=== PATIENT | female | born 1965 | race Two or more races ===

== ENCOUNTER 2022-03-16 08:06 | Outpatient (CLI) | payer OTHER, SELFPAY ==
--- NOTE | 2022-03-16 08:15 | CRLHL7_ITS ---
For Patients: As a result of the Century Cures Act, medical imaging exams and procedure reports are released immediately into your electronic medical record. You may view this report before your referring provider. If you have questions, please contact your health care provider. BILATERAL SCREENING MAMMOGRAM WITH COMPUTER-AIDED DETECTION AND TOMOSYNTHESIS TECHNIQUE: CC and MLO views were obtained. These mammographic images have been obtained using full-field digital technique. These mammographic images were interpreted with the benefit of computer-aided detection. Breast Tomosynthesis was used in this interpretation. COMPARISON FILM: 12/01/20, 06/30/20, 04/01/19. FINDINGS: There are scattered areas of fibroglandular density IMPRESSION: There is no radiographic evidence for malignancy. ASSESSMENT: BI-RADS Category 1: Negative RECOMMENDATION: Routine screening mammogram in 1 year. A lay language report of this examination will be provided to the patient. Roney Villatoro M.D. Diagnostic/Musculoskeletal Radiologist [email or web address] KEKE/Dictated by: Roney Villatoro MD @ 03/16/2022 8:57:00 AM (Electronically Signed)
== END 2022-03-16 08:07 | disposition home or self-care (01) ==
LOC: MAMMO 08:07
PROVIDERS: PCP Family Medicine; Visit Provider Family Medicine
DX: Z12.31 Encounter for screening mammogram for malignant neoplasm of breast (principal)
CPT/HCPCS: 77063; 77067

== ENCOUNTER 2023-03-05 09:55 | Outpatient (CLI) | payer OTHER, SELFPAY ==
--- NOTE | 2023-03-05 10:15 | CRLHL7_ITS ---
For Patients: As a result of the Cures Act, medical imaging exams and procedure reports are released immediately into your electronic medical record. You may view this report before your referring provider. If you have questions, please contact your health care provider. BILATERAL SCREENING MAMMOGRAM WITH COMPUTER-AIDED DETECTION AND TOMOSYNTHESIS TECHNIQUE: CC and MLO views were obtained. These mammographic images have been obtained using full-field digital technique. These mammographic images were interpreted with the benefit of computer-aided detection. Breast Tomosynthesis was used in this interpretation. COMPARISON FILM: 03/16/22, 12/01/20, 06/30/20. FINDINGS: There are scattered areas of fibroglandular density IMPRESSION: There is no radiographic evidence for malignancy. ASSESSMENT: BI-RADS Category 1: Negative RECOMMENDATION: Routine screening mammogram in 1 year. A lay language report of this examination will be provided to the patient. Dipesh Mora M.D. Diagnostic/Nuclear Medicine Radiologist [email or web address] KEKE/Dictated by: Dipesh Mora MD @ 03/06/2023 10:28:00 AM (Electronically Signed)
== END 2023-03-05 09:56 | disposition home or self-care (01) ==
PROVIDERS: PCP Family Medicine; Visit Provider Family Medicine
DX: Z12.31 Encounter for screening mammogram for malignant neoplasm of breast (principal)
CPT/HCPCS: 77063; 77067

== ENCOUNTER 2023-05-01 09:25 | Outpatient (CLI) | payer OTHER, SELFPAY | END 2023-05-01 09:26 | disposition home or self-care (01) | LOC: NFLDREF 05-04 17:48 | PROVIDERS: PCP Family Medicine; Referring Provider Family Medicine; Visit Provider Family Medicine | DX: Z00.00 Encounter for general adult medical examination without abnormal findings (principal); M85.80 Other specified disorders of bone density and structure, unspecified site; E78.5 Hyperlipidemia, unspecified; E66.9 Obesity, unspecified; R73.03 Prediabetes | CPT/HCPCS: 80053; 80061; 82306 ==

== ENCOUNTER 2024-03-05 07:40 | Outpatient (CLI) | payer OTHER, SELFPAY | END 2024-03-05 07:41 | disposition home or self-care (01) | LOC: NFLDREF 03-07 17:39 | PROVIDERS: PCP Family Medicine; Referring Provider Family Medicine; Visit Provider Family Medicine | DX: E78.5 Hyperlipidemia, unspecified (principal); R73.03 Prediabetes | CPT/HCPCS: 80053; 80061 ==

== ENCOUNTER 2024-05-07 06:21 | Outpatient (CLI) | payer OTHER, SELFPAY ==
--- OUTSIDE RECORDS SUMMARY | 2024-05-07 06:24 | XMS_ITS | Clinical Summary ---
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 12/03/2016 Family History Medical History Relation Name Comments Other Father glaucoma Genetic Other Arthritis Fathe r~Grandparents-glaucoma~Mom-high blood pressure Relation Name Status Comments Father Other Social History Tobacco Use Types Packs/Day Years Used Date Smoking Tobacco: Never Smokeless Tobacco: Never Alcohol Use Standard Drinks/Week Comments Not Asked 0 (1 standard drink = 0.6 oz pur e alcohol) Sex and Gender Information Value Date Recorded Sex Assigned at Not on file Gender Identity Not on file Sexual Orientation Not on file Obstetrics History Last Filed Vital Signs Vital Sign Reading Time Taken Comments Blood Pressure 99/67 12/05/2017 6:17 PM CDT Pulse 77 12/05/2017 6:17 PM CDT Temperature - - Respiratory Rate - - Oxygen Saturation - - Inhaled Oxygen Concentration - - Weight - - Height - - Body Mass Index - - Plan of Treatment Health Maintenance Due Date Last Done Comments Tdap 1974 Depression screening for age 12+ 1975 HIV for age 15-65 1978 BMI (ht and wt on same day) for age 18+ 1981 Hepatitis C screening for age 18-79 1981 Tetanus booster 1983 Colonoscopy through age 75 2008 Lipids for age 45-75 2008 Mammogram for age 45-75 2008 Zoster (shingles) series for age 50+ (1 of 2) 2013 COVID-19 vaccine series (2023- season) 2024 Influenza for age 50-64 03/15/2024 Pap test for age 21-65 05/03/2026 , 05/03/2023, 01/04/2017, Additional history exists Pneumococcal series for age 6-64 Aged Out No longer eligible based on patient's age to complete this topic Procedures Procedure Name Priority Date/Time Associated Diagnosis Comments HPV HIGH RISK Routine 05/03/2023 7:59 AM CDT from Last 3 Months or Most Recently Relevant to Health Maintenance Results * HPV HIGH RISK (05/03/2023 7:59 AM CDT) TYPE 16 Negative Negative 05/07/2023 4:13 PM CDT [facility] TYPE 18 Negative Negative 05/07/2023 4:13 PM CDT [facility] OTHER HIGH RISK TYPES Negative Negative 05/07/2023 4:13 PM CDT [facility] Other (Cervical/Vagina l) 05/03/2023 7:59 AM CDT 05/03/2023 4:38 PM CDT Narrative [facility] - 05/07/2023 4:13 PM CDT HPV types 16, 18, 31, 33, 35, 39, 45, 51, 52, 56, 58, 59, 66 and 68 DNA were undetectable or below the pre-set threshold. Methodology: Nik Alonzo 4800 HPV Test Vanna Ramey MD [facility]OLOG[facility] [address] [place] [address], from Last 3 Months or Most Recently Relevant to Health Maintenance Care Teams Eye Glass Frame Polisher Relationship Specialty Start Date End Date Anita Tinsley MD PCP - General Family Practice 08/17/11
--- NOTE | 2024-05-07 07:42 | W.ANESCHARGE ---
Anesthesia Charges Start Date/Time Anesthesia Start Date: 05/07/24 Anesthesia Start Time: 07:15 Stop Date/Time Anesthesia Stop Date: 05/07/24 Anesthesia Stop Time: 07:39
--- NOTE | 2024-05-07 08:52 | W.ANESCHARGE ---
Anesthesia Charges Start Date/Time Anesthesia Start Date: 05/07/24 Anesthesia Start Time: 07:15 Stop Date/Time Anesthesia Stop Date: 05/07/24 Anesthesia Stop Time: 07:39
--- NOTE | 2024-05-07 08:54 | W.ANESCHARGE ---
Anesthesia Charges Start Date/Time Anesthesia Start Date: 05/07/24 Anesthesia Start Time: 07:15 Stop Date/Time Anesthesia Stop Date: 05/07/24 Anesthesia Stop Time: 07:39
== END 2024-05-07 06:22 | disposition home or self-care (01) ==
LOC: OP CLINIC 06:22
PROVIDERS: PCP Family Medicine; Visit Provider Surgery
DX: Z12.11 Encounter for screening for malignant neoplasm of colon (principal); D12.2 Benign neoplasm of ascending colon; K64.9 Unspecified hemorrhoids
CPT/HCPCS: 00811; 00812; 45385; 88305; J2704

== ENCOUNTER 2024-05-12 17:04 | Outpatient (CLI) | payer OTHER, SELFPAY ==
--- OUTSIDE RECORDS SUMMARY | 2024-05-12 17:06 | XMS_ITS | Clinical Summary ---
Author Organization [facility] Address [place], [place] [address] Care Team Providers Care Hunter Name Role Phone Anita Tinsley MD Primary [...] 16 Negative Negative 05/07/2023 4:13 PM CDT [facility] TYPE 18 Negative Negative 05/07/2023 4:13 PM CDT [facility] OTHER HIGH RISK TYPES Negative Negative 05/07/2023 4:13 PM CDT [facility] Other (Cervical/Vagina l) 05/03/2023 7:59 AM CDT 05/03/2023 4:38 PM CDT Narrative [facility] - 05/07/2023 4:13 PM CDT HPV types 16, 18, 31, 33, 35, 39, 45, 51, 52, 56, 58, 59, 66 and 68 DNA were undetectable or below the pre-set threshold. Methodology: Nik Alonzo 4800 HPV Test Vanna Ramey MD MI[facility]BIOLOGY [facility] [address] [place] [address], from Last 3 Months or Most Recently Relevant to Health Maintenance Care Teams Hunter Relationship Specialty Start Date End Date Anita Tinsley MD PCP - General Family Practice 08/17/11
--- NOTE | 2024-05-12 17:20 | CRLHL7_ITS ---
For Patients: As a result of the Century Cures Act, medical imaging exams and procedure reports are released immediately into your electronic medical record. You may view this report before your referring provider. If you have questions, please contact your health care provider. BILATERAL SCREENING MAMMOGRAM WITH COMPUTER-AIDED DETECTION AND TOMOSYNTHESIS TECHNIQUE: CC and MLO views were obtained. These mammographic images have been obtained using full-field digital technique. These mammographic images were interpreted with the benefit of computer-aided detection. Breast Tomosynthesis was used in this interpretation. COMPARISON FILM: 03/05/23, 03/16/22, 12/01/20. FINDINGS: There are scattered areas of fibroglandular density IMPRESSION: There is no radiographic evidence for malignancy. ASSESSMENT: BI-RADS Category 1: Negative RECOMMENDATION: Routine screening mammogram in 1 year. A lay language report of this examination will be provided to the patient. Humphrey Dawson M.D. Diagnostic Radiologist [email or web address] KEKE/Dictated by: Humphrey Dawson MD @ 05/13/2024 9:17:00 AM (Electronically Signed)
== END 2024-05-12 17:05 | disposition home or self-care (01) ==
LOC: MAMMO 17:04
PROVIDERS: PCP Family Medicine; Visit Provider Family Medicine
DX: Z12.31 Encounter for screening mammogram for malignant neoplasm of breast (principal)
CPT/HCPCS: 77063; 77067

== ENCOUNTER 2025-04-21 07:38 | Outpatient (CLI) | payer OTHER, SELFPAY | END 2025-04-21 07:39 | disposition home or self-care (01) | PROVIDERS: PCP Family Medicine; Visit Provider Family Medicine | DX: E78.5 Hyperlipidemia, unspecified (principal); M85.88 Other specified disorders of bone density and structure, other site; R73.03 Prediabetes; R74.8 Abnormal levels of other serum enzymes; E66.9 Obesity, unspecified; Z68.31 Body mass index [BMI] 31.0-31.9, adult | CPT/HCPCS: 80053; 80061; 82306 ==

== ENCOUNTER 2025-05-18 14:27 | Outpatient (CLI) | payer OTHER, SELFPAY ==
--- NOTE | 2025-05-18 14:40 | CRLHL7_ITS ---
For Patients: As a result of the Century Cures Act, medical imaging exams and procedure reports are released immediately into your electronic medical record. You may view this report before your referring provider. If you have questions, please contact your health care provider. INDICATION: BILATERAL SCREENING MAMMOGRAM, ASYMPTOMATIC 60 Y/O FEMALE COMPARISON: 05/12/24, 03/05/23, 03/16/22 TECHNIQUE: Digital mammogram in CC and MLO projections including computer-aided detection (CAD) and tomosynthesis. BREAST COMPOSITION: There are scattered areas of fibroglandular density. FINDINGS: No suspicious findings. ASSESSMENT: BI-RADS 1 Negative RECOMMENDATION: Annual screening mammogram. A lay language report of this examination will be provided to the patient. Dictated by: Humphrey Dawson MD @ 05/19/2025 10:09:08 (Electronically Signed)
== END 2025-05-18 14:28 | disposition home or self-care (01) ==
LOC: MAMMO 14:27
PROVIDERS: PCP Family Medicine; Visit Provider Family Medicine
DX: Z12.31 Encounter for screening mammogram for malignant neoplasm of breast (principal)
CPT/HCPCS: 77063; 77067